=== PATIENT | male | born 1980 | race Caucasian/White ===

== ENCOUNTER 2017-05-04 22:44 | Emergency (ER) | payer OTHER ==
[~2017-05-04] VITALS: Ht 175.3 cm; Wt 74.8 kg
[~2017-05-04 22:44] MED LIST: KEFLEX500 MG PO; NORCO 5-325 TA1 EACH PO
[2017-05-05] MEDS ORDERED: OXYCODONE HCL 55 MG PO (02:54)
[2017-05-05 03:04] VITALS: BP 118/73
== END 2017-05-05 03:10 | disposition home or self-care (01) ==
LOC: ER 22:44
DX: S22.32XA Fracture of one rib, left side, initial encounter for closed fracture (principal); S00.83XA Contusion of other part of head, initial encounter; F17.210 Nicotine dependence, cigarettes, uncomplicated; F10.99 Alcohol use, unspecified with unspecified alcohol-induced disorder; F12.10 Cannabis abuse, uncomplicated; Y04.8XXA Assault by other bodily force, initial encounter; Y93.89 Activity, other specified; Y92.89 Other specified places as the place of occurrence of the external cause; Y99.8 Other external cause status